=== PATIENT | female | born 1990 | race Caucasian/White ===

== ENCOUNTER 2024-03-30 15:22 | Outpatient (CLI) | payer OTHER, SELFPAY ==
--- NOTE | ~2024-03-30 | US_ITS ---
EXAMINATION: US soft tissue head and neck DATE: 03/30/2024 15:44 INDICATION: Enlarged lymph nodes, unspecified. TECHNIQUE: Multiple grayscale and Doppler ultrasound images of the head and neck were obtained. COMPARISON: None FINDINGS: There are no enlarged lymph nodes in the submandibular region in the patient's area of conc felecia. IMPRESSION: 1. No abnormal mass or lymphadenopathy in the patient's area of concern. Reviewed, dictated and finalized at location A. [employer]
== END 2024-03-30 15:23 | disposition home or self-care (01) ==
PROVIDERS: PCP Nurse Practitioner Adult Health; Visit Provider Nurse Practitioner Adult Health
DX: R59.9 Enlarged lymph nodes, unspecified (principal)
CPT/HCPCS: 76536